=== PATIENT | male | born 1955 | race Caucasian/White ===

== ENCOUNTER 2023-12-28 16:14 | Emergency (ER) | payer BC, SELFPAY ==
[2023-12-28 16:17] VITALS: BP 127/79
--- NOTE | 2023-12-28 16:55 | ED.GENMED ---
History of Present Illness
General
Chief Complaint: Musculo-Skeletal Complaint
Source: patient
Exam Limitations: none
Time Seen by Provider: 12/28/23 16:32
Nursing documentation reviewed up to this point in time: agreed with
History of Present Illness
History of Present Illness:
Patient is a 60-year-old male who complains of right wrist pain. Patient reports this morning he woke up from sleep and his wrist and hands were underneath his legs. He pulled his right wrist out and heard a crack in his right wrist and since then
has had pain and swelling in his right wrist/hand area. He denies any actual injury.He has taken alleve with no relief.
No prior history of gout.
Past History
Past History
ED Past Medical History: Asthma
Social History
Tobacco: Former smoker
Alcohol: None
Drug: None
Review of Systems
Review of Systems
Allergies reviewed?: Yes
All Other Systems: ROS reviewed and negative except as documented in HPI and ROS
Constitutional: Reports no symptoms; Denies fever, fatigue or chills
EENT: Reports no symptoms
Musculoskeletal: Reports other (right wrist pain )
Skin: Reports no symptoms
Neurological: Reports no symptoms
Psychiatric: Reports no symptoms
Phy Exam
General Physical Exam
General Presentation: no apparent distress
General age: appears stated age
General Skin: warm and dry
General Habitus: normal
General Mental: alert
General Hydration: appears well hydrated
Neurological Exam
Neurological Exam: alert and oriented x3
Musculoskeletal Exam
Musculoskeletal Exam: other (RUE with strong pulses + swelling to dorsal right hand region with tenderness + mild erythema )
Skin Exam
Skin Exam: normal color and warm/dry
Psychiatric Exam
Psychiatric Exam: normal mood/affect
Course
Orders/Labs/Results
Orders:
Orders
12/28/23 16:21
CR Hand - Right 2 Views Urgent
Comment:
Reason For Exam: pain
Wrist, Right 3 Views [CR Wrist - Right Min 3 Views] Urgent
Comment:
Reason For Exam: pain
12/28/23 17:37
CPK [Creatine Phosphokinase] Urgent
12/28/23 18:10
Cephalexin Monohydrate [Keflex] 500 mg PO NOW STA
Vital Signs
Initial and Last Documented VS:
Initial Vital Signs
Temp Pulse Resp BP Pulse Ox
98.8 F 70 16 127/79 99
12/28/23 16:17 12/28/23 16:17 12/28/23 16:17 12/28/23 16:17 12/28/23 16:17
Last Documented Vital Signs
Temp Pulse Resp BP Pulse Ox
98.3 F 68 18 113/70 99
12/28/23 18:30 12/28/23 18:30 12/28/23 18:30 12/28/23 18:30 12/28/23 18:30
MDM/Problems Addressed
Differential Diagnosis Includes:
not limited to cellulitis, arthritis, less likely gout less likely septic arthritis
MDM/Problems Addressed:
As documented patient is a 60-year-old male who presents with right hand/wrist discomfort that started this morning. He woke up and realized that his hand was underneath his legs while sleeping. There is little bit of swelling to the dorsal hand
with very mild erythema. He denies any fever or chills. Denies any injury. X-rays are negative. Likely from him sleeping on his hand however with small amount of redness as discussed ED physician evaluated patient we will treat for cellulitis.
No obvious effusion not consistent with osteoarthritis
*Critical Care Note
Total Time (30-74mins, 75-104mins- exclusive of procedures): Not Applicable
ED Attending Note
-
Portions of this chart may have been created with voice recognition software.� Occasional wrong word or��sound alike� substitutions may have occurred due to the inherent limitations of voice recognition software.
Discharge Plan
Departure
Patient Disposition: Home (Routine Discharge)
Date of Disposition: 12/28/23
Time of Disposition: 18:09
Patient with high blood pressure during this ER visit?: No
Discharge Problem:
Pressure sore, Cellulitis
Instructions: Pressure sores, Cellulitis (Skin Infection), Adult ED
Prescriptions:
New
cephalexin 500 mg capsule
500 mg PO QID 7 Days Qty: 28 0RF
No Action
ibuprofen 600 MG tablet
600 mg PO Q6H Qty: 20 0RF
metaxalone [Skelaxin] 800 MG tablet
800 mg PO TID Qty: 12 0RF
Referrals:
Jori Harris MD [Family Provider] - Follow up in 1 week
Activity Restrictions/Additional Instructions:
Thank you for visiting the Emergency Department at [facility].
1. Please schedule a follow up appointment as directed. Call first thing tomorrow morning to make an appointment.
2. If indicated, please take your medications as instructed and indicated on discharge paperwork.
3. If any of your symptoms do not improve, or persist, or become more severe within 6-12 hours, please return to the emergency department for further care.
4. Please return to the emergency department if you develop a headache, neck pain/stiffness, fever greater than 100.4F, chest pain, shortness of breath, persistent nausea, vomiting, slurred speech, difficulty walking, numbness/tingling, weakness,
signs of infection or any other symptoms that are worrisome to you.
Please call [phone] if you have any questions.
Interventions
Interventions:
*Risk Screen - Suicide Last Done: 12/28/23 16:45
*General Assessment Last Done: 12/28/23 16:33
*Neglect/Abuse Screening Last Done: 12/28/23 16:45
ED- Fall Risk Assessment Last Done: 12/28/23 16:33
*ED COVID-19 Vaccine History Last Done: 12/28/23 16:33
*Nursing Disposition Last Done: 12/28/23 18:30
ED-Musculoskeletal Assessment Last Done: 12/28/23 16:33
Discharge Date and Time
Discharge Date/Time: 12/28/23 18:20
Print Language: WOLOF
[2023-12-28 17:58] LABS: Creatine Phosphokinase 93 U/L (55-170)
[2023-12-28] MEDS: KEFLEX 500 MG PO (18:15)
--- NOTE | 2023-12-28 18:29 | EDRN ---
Reviewed discharge instructions with patient. Verbalized understanding. Ambulated with steady gait to the lobby.
[2023-12-28 18:30] VITALS: BP 113/70
== END 2023-12-28 18:20 | disposition home or self-care (01) ==
LOC: EMR 16:14
PROVIDERS: EMERGENCY PHYSICIAN Emergency Medicine; FAMILY PHYSICIAN Family Medicine
DX: M25.531 Pain in right wrist (principal); M79.89 Other specified soft tissue disorders; J45.909 Unspecified asthma, uncomplicated; Z87.891 Personal history of nicotine dependence
CPT/HCPCS: 99284; 73110; 73120; 82550